=== PATIENT | female | born 1935 | race Caucasian/White ===

== ENCOUNTER 2020-08-06 07:29 | Observation (INO) ==
[2020-08-01 13:38] LABS: Alanine Aminotransferase 20 U/L (12-78); Albumin Level 3.6 gm/dl (3.4-5.0); Aspartate Aminotransferase 17 U/L (15-37); BUN Creatinine Ratio 20.4 (10-20); Bilirubin Direct < 0.1 mg/dl (0-0.2); Blood Urea Nitrogen 16 mg/dl (7-18); Calcium 9.6 mg/dl (8.5-10.1); Carbon Dioxide 29 mmol/L (21-32); Chloride 107 mmol/L (98-107); Creatinine Clr Calc Pharmacy 58.7 ml/min; Est GFR (African American) 83.3; Est GFR (Non-African American) 71.9; Glucose 87 mg/dl (70-99); Potassium 4.1 mmol/L (3.5-5.1); Sodium 142 mmol/L (136-145)
[2020-08-01 13:39] LABS: Alkaline Phosphatase 84 U/L (45-117); Bilirubin,Total 0.3 mg/dl (0.2-1); Total Protein 7.6 gm/dl (6.4-8.2)
--- NOTE | 2020-08-02 10:54 | Anesthesiology Consultation ---
Date of Service August 02, 2020 Assessment & Plan (1) Encounter for pre-operative examination: COVID Status: As of 07/25 nurse assessment, patient denies travel to endemic area, known exposure/sick contacts, or symptoms of COVID19. Preoperative COVID19 testing completed on 08/01, results pending. Pre-op CBC was not completed. Will order for AM DOS. Chart Review Chart Review: Acceptable Risk for Surgery (pending CBC AM DOS) and Patient NOT seen in Pre Admission Testing History Surgery Operation Date: 08/06/20 09:20 Proposed Procedures p Laparoscopic Cholecystectomy - Julito Luz MD, FACS Height/Weight Height: 5 ft 6 in Weight: 76.204 kg Allergies Allergy/AdvReac Type Severity Reaction Status Date / Time Penicillins Allergy Rash Verified 07/25/20 10:53 Sulfa (Sulfonamide Allergy pruritis Verified 07/25/20 10:53 Antibiotics) Medications Home Medications Medication Instructions Recorded Confirmed Last Taken acetaminophen 325 mg tablet 325 mg PO Q4H PRN 06/13/20 07/25/20 Unknown lisinopril 20 mg tablet 20 mg PO QPM 06/13/20 07/25/20 Unknown calcium carbonate 600 mg (1,500 1 cap PO QPM cap 07/09/20 07/25/20 Unknown mg)-vitamin D3 500 unit capsule omega-3 fatty acids 1,000 mg 1,000 mg PO QAM 07/10/20 07/25/20 Unknown capsule aspirin 81 mg PO Q OTHER DAY 07/25/20 07/25/20 Unknown cranberry extract-vitamin C 2 cap PO BID 07/25/20 07/25/20 Unknown bygxwlrricel-gxntcoqz-ixzdiu 1 tab PO QAM 07/25/20 07/25/20 Unknown [Multivitamin 50 Plus] solifenacin [Vesicare] 10 mg PO QAM 07/25/20 07/25/20 Unknown Past Medical History Medical History Cholelithiases Hiatal hernia History of nephrolithiasis Hypertension Osteoarthritis Overactive bladder Spinal stenosis Past Family History Family History Father Prostate cancer Other Diabetes Heart disease Hypertension Past Surgical History Surgical History H/O esophagogastroduodenoscopy 03/2020 for nausea w/u in hospital H/O: hysterectomy History of arthroscopy of left shoulder History of benign breast biopsy History of bunionectomy History of hammertoe correction History of knee replacement BL History of root canal procedure 07/23/2020 History of shoulder surgery Rt Hx of appendectomy Hx of colonoscopy 06/15/2014 Hx of tonsillectomy Social History Smoking Status: Never smoker Do You Dip or Chew Tobacco: No Hx Alcohol Use: No Hx Substance Use: No substance use type: does not use Testing Laboratory Results 08/01/20 10:48 Electrocardiogram Date: 04/08/20 SR at 99bpm with marked sinus arrhythmia. Chest X-Ray Date: 04/08/20 Findings: + NAD Echocardiogram Date: 04/09/20 EF: 60% LV Function: normal Other Findings: + diastolic dysfunction (grade I) Valvular Disease: + no significant valvular disease Stress Test Date: 04/09/20 Mild breast attenuation. Good quality study. Normal gated MPI wall motion and EF. There is a small in size, mild in intensity, fixed MPI defect isolated to the distal inferolateral myocardium. This appears to be breast attenuation artifact. A small infarct cannot be excluded. There is no myocardial ischemia. Low risk study. Similar to prior study dated 09/02/06.
[2020-08-02 19:33] LABS: SARS CoV2 RNA (COVID-19) NOT DETECTED (NOT DETECTED)
[~2020-08-06 07:29] MED LIST: CIPROFLOXACIN / D5W 400 MG/200 ML BAG IV SCH; LR 15ML/HR IV SCH
[2020-08-06] MEDS ORDERED: DEXAMETHASONE SOD INJ 4 MG/ML VIAL ONE (07:40)
[2020-08-06] MEDS ORDERED: GLYCOPYRROLATE 0.2 MG/ML VIAL ONE (07:40)
[2020-08-06] MEDS ORDERED: PROPOFOL IV EMULSION 10 MG/ML 20 ML VIAL IV ONE (07:40)
[2020-08-06] MEDS ORDERED: fentaNYL citrate 100 MCG/2 ML VIAL ONE (07:40)
[2020-08-06] MEDS ORDERED: ONDANSETRON INJ 2 MG/ML 2 ML VIAL ONE (07:40)
[2020-08-06] MEDS ORDERED: LIDOCAINE HCL 2% 2 ML VIAL/AMP(20MG/ML) INFIL ONE (07:40)
[2020-08-06] MEDS ORDERED: NEOSTIGMINE METHYLSULFATE 5 MG/5 ML SYR ONE (07:40)
[2020-08-06 08:22] LABS: Basophils # (auto) 0.02 K/uL (0-0.2); Basophils % (auto) 0.4 %; Eosinophils # (auto) 0.11 K/uL (0-0.5); Eosinophils % (auto) 2.1 %; Hematocrit (blood only) 44.2 % (37-47); Hemoglobin 14.9 g/dL (12.0-16.0); Immature Granulocytes # (auto) 0.01 K/uL (0.00-0.02); Immature Granulocytes % (auto) 0.2 %; Lymphocytes % (auto) 37.7 %; Mean Corpuscular Hemoglobin 31.6 pg (25-34); Mean Corpuscular Volume 93.6 fL (80-100); Mean Platelet Volume 9.8 fL (7.4-10.4); Monocytes # (auto) 0.46 K/uL (0.11-0.59); Monocytes % (auto) 8.7 %; Neutrophils % (auto) 50.9 %; Platelet Count 248 K/uL (130-400); RDW Coefficient of Variation 13.4 % (11.5-14.5); Red Blood Count 4.72 M/uL (4.2-5.4)
--- NOTE | 2020-08-06 08:27 | History & Physical Bridge Note ---
Date of Service August 06, 2020 History & Physical Bridge Note I have examined the patient, reviewed the History & Physical and in the interval since the performance of the History & Physical I have noted the following changes of clinical significance: no changes noted
[2020-08-06] MEDS ORDERED: ePHEDrine sulfate 50 MG/ML AMP IV PRN (08:48)
[2020-08-06] MEDS ORDERED: ONDANSETRON INJ 2 MG/ML 2 ML VIAL IV PRN ×2 (08:48→11:14)
[2020-08-06] MEDS ORDERED: ATROPINE SULFATE 0.1 MG/ML 10ML SYR IV PRN (08:48)
[2020-08-06] MEDS ORDERED: BUPIVACAINE 0.5 % 5 MG/1 ML MPF 30ML VIAL ONE (09:00)
[2020-08-06 09:03] LABS: Mean Corpuscular Hgb Conc 33.7 g/dL (32-36)
[2020-08-06] MEDS ORDERED: ePHEDrine sulfate 50 MG/ML SYR ONE (09:22)
--- NOTE | 2020-08-06 09:48 | Post Operative Brief Note ---
PG Immediate Post Op with CF Date of Surgery August 06, 2020 Pre & Post Diagnosis Operation Date: 08/06/20 09:20 Pre-Op Diagnosis: Cholelithiasis, biliary colic Post-Op Diagnosis: Cholelithiasis, biliary colic I identified the patient and participated in the time-out.: Yes Procedure Operation Date: 08/06/20 09:20 Actual Procedures p Laparoscopic Cholecystectomy(Not Applicable) - Julito Luz MD, FACS Surgeon Julito Luz MD, FACS [facility] Mony Michaels Estimated Blood Loss 20 Findings Consistent with Post-Op Diagnosis Specimens Specimen Description: Permanent specimen: A. Gallbladder and contents
[2020-08-06] MEDS ORDERED: ACETAMINOPHEN 1,000 MG/100 ML VIAL IV ONE (09:59)
[2020-08-06] MEDS: fentaNYL citrate 100 MCG/2 ML VIAL IV PRN ×2 (10:21→10:26)
--- NOTE | 2020-08-06 10:27 | Operative Report (OR) ---
DATE OF OPERATION: 08/06/2020 NAME OF OPERATION: Laparoscopic cholecystectomy. PREOPERATIVE DIAGNOSES: Biliary colic and cholelithiasis. POSTOPERATIVE DIAGNOSES: Biliary colic and cholelithiasis. STAFF SURGEON: Julito Luz MD. OPERATIONS REPRESENTATIVE: Zhang Michaels PA-C. ANESTHESIA: General. DESCRIPTION OF PROCEDURE: The patient was brought in the Operating Room and placed on the operating table in supine position. Pneumatic stockings, orogastric tube were placed. My assistant corporate controller helped with prepping, draping, removal of the gallbladder, closure of the wounds. Incision was made above the umbilicus, anesthetizing all incisions using 0.5% plain Marcaine, carrying dissection down to the fascia, placing a Veress needle, producing pneumoperitoneum, placing an 11 mm port. Under visualization, three 5 mm ports were placed, 1 cephalad, 2 laterally, all under visualization. The patient's gallbladder was very distended. It was aspirated of bile. Dissection was carried out the alice hepatis identifying the cystic duct and cystic artery as well as common hepatic artery. Cystic duct and cystic artery were clipped and transected. Gallbladder was then dissected away from the liver bed in the usual fashion. It was placed in an Endobag. After appropriate hemostasis and irrigation, the Endobag was removed from the umbilical site. All ports were then removed. Fascia at the umbilicus closed using interrupted 0 Vicryl suture. Skin reapproximated using subcuticular 4-0 Monocryl with Steri-Strips. The patient was transferred to Recovery Room in stable condition. I attest to the content of the Intraoperative Record and any orders documented therein. Any exception s are noted below.
--- NOTE | 2020-08-06 10:38 | Anesthesiology Progress Note ---
Date of Service August 06, 2020 Anesthesia Post Procedure Vital Signs Vital Signs: Temp Pulse Pulse Resp BP BP Pulse Ox 08/06/20 10:30 62 16 123/58 L 97 08/06/20 10:20 62 16 142/61 H 100 08/06/20 10:10 66 16 138/61 99 08/06/20 10:03 36.4 C L 16 134/61 98 08/06/20 08:20 37.5 C 90 18 170/86 H 98 Transfer of Care Handoff Completed per policy Notes Mental Status: alert / awake / arousable Patient Amnestic to Procedure: Yes Nausea / Vomiting: adequately controlled Pain: adequately controlled Airway Patency, RR, SpO2: stable & adequate BP & HR: stable & adequate Hydration State: stable & adequate Anesthetic Complications: no major complications apparent
[2020-08-06] MEDS ORDERED: MoRPHine SULFATE 2 MG/ML CARP IV PRN ×2 (11:14)
[2020-08-06] MEDS ORDERED: HYDROCODONE/ACETAMOPHEN 5/325MG TAB PO PRN ×2 (11:14)
[2020-08-06] MEDS ORDERED: PROMETHAZINE HCL 12.5 MG in SODIUM CHLORIDE 0.9% 50 ML IV PRN (11:14)
[2020-08-06] MEDS ORDERED: LACTATED RINGER'S 1,000 ML IV SCH (11:14)
[2020-08-06] MEDS ORDERED: ACETAMINOPHEN 325 MG TAB PO PRN (11:14)
--- NOTE | 2020-08-06 11:53 | Consultation ---
Date of Consultation August 06, 2020 Assessment & Plan (1) Cholelithiasis: POD #[address] Luz secondary to cholelithiasis and biliary colic EBL 20 mL Tolerated procedure well Pain/wound management per general surgery Encourage incentive spirometry Diet and activity per surgery Follow H&H Pt with complaints of nausea - instructed nurse to administer Promethazine 12.5mg x 1 now (2) Hypertension: Blood pressure controlled, 137/64 Continue lisinopril with hold parameters (3) Urge and stress incontinence: Continue Vesicare (4) GERD (gastroesophageal reflux disease): Continue PPI (5) DVT prophylaxis: SCD/TEDS, per primary Follow up: PCP Dr. Jeong upon discharge Pt was seen and examined in collaboration with Dr. Pelayo, please see addendum Starting 08/07/20 pt will be under the care of Dr. Hickman Thank you for this consultation. We will follow the patient with you during their hospital stay. You can reach a member of the [facility] Hospitalist Team 15/06 via pager @ [phone]. Supervising Physician Co-Signing Physician Notes Pt was seen and examined. Agreed with Tatiana CULVER exam, assessment and plan. 84-year-old female who has significant past medical history of HTN, GERD, over active bladder, spinal stenosis, osteoarthritis s/p elective laparoscopic cholecystectomy today performed by Dr. Luz. Pt said that pain is mild around the incision area. She said that she doesn't have anymore nausea. Denies any chest pain, palpitation, dizziness and SOB. No post op complication. Continue incentive spirometry. Continue pain control as per surgery. Diet started as per ortho. Will monitor H/H and electrolytes. Will continue monitor her during the hospital course. MD Pierce History of Present Illness Requesting Physician: Dr. Luz Reason for Consultation: Postop medical management Attending Physician: Julito Luz MD, FACS History of Present Illness This is an 84-year-old female who has significant past medical history of HTN, GERD, overactive bladder, spinal stenosis, osteoarthritis who presents for elective laparoscopic cholecystectomy by Dr. Luz. She tolerated procedure well. We have been consulted for medical management. Patient elicits for several weeks she has been experiencing nausea and bloating. She underwent ultrasound of abdomen as outpatient which revealed gallbladder stones. She was referred to Dr. Luz who felt symptoms were likely secondary to biliary colic and possible chronic cholecystitis. Therefore today she underwent elective laparoscopic cholecystectomy. She tolerated procedure well. Postoperatively she is complaining of right upper quadrant abdominal discomfort, described as a dull ache, 3/10, nonradiating. She also complains of nausea but no vomiting. She denies any fever, chills, sweats, lightheadedness, dizziness, chest pain, shortness breath, cough, diarrhea, change in bowel or urinary habits. Her is at bedside. She is requesting antiemetic. She does have history of hypertension which is well-controlled on oral lisinopril. She did undergo echocardiogram and nuclear stress testing which was negative for inducible ischemia. Echo revealed EF 60% with grade 1 diastolic dysfunction. She does have significant osteoarthritis in which she states she is going to require a right shoulder procedure in the future. She does have history of GERD which is treated with Prilosec. Outpt records reviewed. Allergies Allergy/AdvReac Type Severity Reaction Status Date / Time Penicillins Allergy Rash Verified 07/25/20 10:53 Sulfa (Sulfonamide Allergy pruritis Verified 07/25/20 10:53 Antibiotics) NSAIDS (Non-Steroidal AdvReac Intermediate Gastrointestinal Verified 08/06/20 08:07 Anti-Inflamma Upset Home Medications Home Medications Medication Instructions Recorded Confirmed Type acetaminophen 325 mg tablet 325 mg PO Q4H PRN 06/13/20 08/06/20 History lisinopril 20 mg tablet 20 mg PO QPM 06/13/20 08/06/20 History calcium carbonate 600 mg (1,500 1 cap PO QPM cap 07/09/20 08/06/20 History mg)-vitamin D3 500 unit capsule omega-3 fatty acids 1,000 mg 1,000 mg PO QAM 07/10/20 08/06/20 History capsule aspirin 81 mg PO Q OTHER DAY 07/25/20 08/06/20 History cranberry extract-vitamin C 2 cap PO BID 07/25/20 08/06/20 History zuzezlnzkrnz-hxmwzefa-kljtva 1 tab PO QAM 07/25/20 08/06/20 History [Multivitamin 50 Plus] solifenacin [Vesicare] 10 mg PO QAM 07/25/20 08/06/20 History estradiol [Estrace] 1 applic VAGINAL 2XWK PRN 08/06/20 08/06/20 History omeprazole [Prilosec] 20 mg PO DAILY 08/06/20 08/06/20 History polyethylene glycol 3350 [Miralax] 17 g PO DAILY 08/06/20 08/06/20 History Patient History Medical History Cholelithiases Hiatal hernia History of nephrolithiasis Hypertension Osteoarthritis Overactive bladder Spinal stenosis Surgical History H/O esophagogastroduodenoscopy 03/2020 for nausea w/u in hospital H/O: hysterectomy History of arthroscopy of left shoulder History of benign breast biopsy History of bunionectomy History of hammertoe correction History of knee replacement BL History of root canal procedure 07/23/2020 History of shoulder surgery Rt Hx of appendectomy Hx of colonoscopy 06/15/2014 Hx of tonsillectomy Family History Father Prostate cancer Other Diabetes Heart disease Hypertension Social History Smoking Status: Never smoker Second Hand Exposure: No; Do You Dip or Chew Tobacco: No; Hx Alcohol Use: No Hx Substance Use: No Preferred Language: Yi Communication Ability: Effective Environmental Projects Advisor Required: No Beliefs That Will Affect Care: None marital status: Current Living Situation: Spouse current occupational status: retired Feels Safe at Home: Yes Safety Concerns: Feels Safe At This Time Review of Systems Review of Systems: All systems reviewed & are unremarkable except as noted in HPI & below Physical Exam Physical Exam: Constitutional: WD/WN, elderly, female, vitals as above, NAD, sitting up in bed, pleasant, conversing easily Head: Normocephalic, Atraumatic Eyes: PERRL, conjunctivae normal, anicteric sclerae ENMT: external ear and nose normal, oropharynx normal Neck: trachea midline, no thyromegaly normal visual inspection Respiratory: normal respiratory effort, lungs clear to auscultation, no wheeze, rales, rhonchi. Normal insp/exp effort, no accessory muscle use Cardiovascular: RRR, no murmur, no edema Vessels: no JVD or carotid bruit Chest: normal inspection of chest Abdomen: Diminished bowel sounds, laparoscopic incision dressings mild serosanguineous drainage, soft no hepatosplenomegaly Musculoskeletal: no cyanosis or clubbing, extremities motor strength 5/5 Skin: no rashes, warm and dry normal turgor Neurologic: PERRL, EOMI, accommodation nl, no face palsy, no dysarthria CN's II-XI intact bilaterally and moves all extremities Psychiatric: A+Ox3, euthymic affect Lymphatic: no cervical or axillary lymphadenopathy : deferred Results & Data ([place]) Vital Signs (Past 12 Hours) Vital Signs Temp Pulse Pulse Resp BP BP Pulse Ox 08/06/20 11:30 36.3 C L 59 L 16 137/64 92 08/06/20 11:00 36.3 C L 61 16 134/74 134/74 97 08/06/20 10:40 36.5 C 69 16 132/59 L 97 08/06/20 10:30 62 16 123/58 L 97 08/06/20 10:20 62 16 142/61 H 100 08/06/20 10:10 66 16 138/61 99 08/06/20 10:03 36.4 C L 16 134/61 98 08/06/20 08:20 37.5 C 90 18 170/86 H 98 Laboratory Results Short CBC 08/06/20 Range/Units 08:05 WBC 5.30 (4.8-10.8) K/uL Hgb 14.9 (12.0-16.0) g/dL Hct 44.2 (37-47) % Plt Count 248 (130-400) K/uL Preoperative, testing on 08/06 was negative Diagnostic Findings Preoperative chest x-ray 04/08/2020 no acute cardiopulmonary normality Nuclear stress test 08/10/2020- for inducible ischemia Echocardiogram 04/09/2020 revealed EF 60% with grade 1 diastolic dysfunction, mild aortic valve thickening, no sclerosis Medications Administered Discontinued Medications Bupivacaine HCl (Bupivacaine 0.5 % 5 Mg/1 Ml Mpf 30ml Vial) Confirm Administered Dose 30 ml .ROUTE .STZentric-MED ONE Stop: 08/06/20 09:01 Last Admin: 08/06/20 09:48 Dose: 10 ml Documented by: [id number] Fentanyl Citrate (Fentanyl Citrate 100 Mcg/2 Ml Vial) 50 mcg IV Q5M PRN PRN Reason: PACU Use Only-Pain Stop: 08/06/20 16:48 Last Admin: 08/06/20 10:26 Dose: 50 mcg Documented by: [id number] Admin: 08/06/20 10:21 Dose: 50 mcg Documented by: [id number] Lactated Ringer's (Lr) 1,000 mls @ 15 mls/hr IV .Q24H FRANKO Stop: 08/07/20 05:59 Last Infusion: 08/06/20 08:51 Dose: 0 mls/hr Documented by: [id number] Admin: 08/06/20 08:46 Dose: 15 mls/hr Documented by: [id number] Ciprofloxacin (Cipro / D5w) 400 mg in 200 mls @ 100 mls/hr IV PREOP FRANKO Stop: 08/06/20 16:00 Last Infusion: 08/06/20 11:29 Dose: 0 mls/hr Documented by: [id number] Admin: 08/06/20 08:51 Dose: 100 mls/hr Documented by: [id number] Acetaminophen (Ofirmev) 1,000 mg in 100 mls @ 400 mls/hr IV NOW ONE; Protocol Stop: 08/06/20 10:13 Last Infusion: 08/06/20 11:29 Dose: 0 mls/hr Documented by: [id number] Admin: 08/06/20 10:15 Dose: 400 mls/hr Documented by: [id number] Ondansetron HCl (Ondansetron Inj 2 Mg/Ml 2 Ml Vial) 4 mg IV ONCE PRN PRN Reason: PACU Use Only-Nausea/Vomiting Stop: 08/06/20 16:49 Last Admin: 08/06/20 10:20 Dose: 4 mg Documented by: [id number] ECG Rate (beats per minute): 99 Rhythm: normal sinus
[2020-08-06] MEDS ORDERED: lisinopriL 20 MG TAB PO SCH (21:00)
[2020-08-07 06:15] LABS: Basophils # (auto) 0.02 K/uL (0-0.2); Basophils % (auto) 0.2 %; Eosinophils # (auto) 0.02 K/uL (0-0.5); Eosinophils % (auto) 0.2 %; Hematocrit (blood only) 42.7 % (37-47); Hemoglobin 13.8 g/dL (12.0-16.0); Immature Granulocytes # (auto) 0.02 K/uL (0.00-0.02); Immature Granulocytes % (auto) 0.2 %; Lymphocytes # (auto) 1.22 K/uL (1.2-3.4); Lymphocytes % (auto) 13.5 %; Mean Corpuscular Hemoglobin 30.6 pg (25-34); Mean Corpuscular Hgb Conc 32.3 g/dL (32-36); Mean Corpuscular Volume 94.7 fL (80-100); Mean Platelet Volume 9.8 fL (7.4-10.4); Monocytes # (auto) 0.65 K/uL (0.11-0.59); Monocytes % (auto) 7.2 %; Neutrophils # (auto) 7.14 K/uL (1.4-6.5); Neutrophils % (auto) 78.7 %; Platelet Count 270 K/uL (130-400); RDW Coefficient of Variation 13.6 % (11.5-14.5); RDW Standard Deviation 47.1 fL (36.4-46.3); Red Blood Count 4.51 M/uL (4.2-5.4); White Blood Count 9.07 K/uL (4.8-10.8)
[2020-08-07 06:51] LABS: Albumin Level 3.6 gm/dl (3.4-5.0); BUN Creatinine Ratio 18.6 (10-20); Bilirubin Direct 0.1 mg/dl (0-0.2); Calcium 9.5 mg/dl (8.5-10.1); Creatinine Clr Calc Pharmacy 57.3 ml/min; Est GFR (African American) 80.8; Est GFR (Non-African American) 69.7
[2020-08-07 06:54] LABS: Bilirubin,Total 0.5 mg/dl (0.2-1); Globulin 3.5 gm/dl (2.5-4.0); Phosphorus 3.7 mg/dl (2.5-4.9); Total Protein 7.1 gm/dl (6.4-8.2)
--- NOTE | 2020-08-07 08:34 | Hospitalist Progress Note ---
Date of Service August 07, 2020 Assessment & Plan (1) Cholelithiasis: POD #[address] Dr[address] Luz secondary to cholelithiasis and biliary colic EBL 20 mL Tolerated procedure well Pain/wound management per general surgery Encourage incentive spirometry Tolerating diet H&H stable 13.8 and 42.7 (2) Hypertension: Blood pressure controlled, 135/68 Continue lisinopril with hold parameters (3) Urge and stress incontinence: Continue Vesicare (4) GERD (gastroesophageal reflux disease): Continue PPI (5) DVT prophylaxis: SCD/TEDS, per primary Follow up: PCP Dr. Jeong upon discharge Pt was seen and examined in collaboration with Dr. Hickman, please see addendum Thank you for this consultation. We will follow the patient with you during their hospital stay. [facility] via pager @ [phone]. Admission and Anticipated Discharge Date Admission Date: August 06, 2020 Supervising Physician Co-Signing Physician Notes I have seen and examined the patient and have discussed the case with the provider above. I agree with the assessment and plan as stated. 84 yo F POD 1 s/p laparoscopic cholecystectomy, feels well, denies pain that is not well controlled with oral medications. She is ambulatory, tolerating PO, mentating clearly. Wounds are covered with steri strips and are dry and intact without drainage or surrounding erythema. Overall she feels well and is being sent home in stable condition. DO Amrit Hickman Patient was seen and examined in room 353. She is postop day #1 status post laparoscopic cholecystectomy. She feels well this morning. She slept well last evening. She continues to have mild incisional discomfort as well as tightness to the upper abdomen that is worse with taking deep breath. She has been doing incentive spirometry every hour. She is passing gas. She denies any fever, chills, sweats, lightheadedness, dizziness, chest pain, short breath, cough, nausea, vomiting. She is urinating without difficulty. Per patient she is going to be discharged later this morning with close outpatient follow-up with surgeon. Review of Systems Review of Systems: All systems reviewed & are unremarkable except as noted in HPI & below Physical Exam Physical Exam: Gen: WD/WN, NAD, F A&O x3 HEENT: Normocephalic, atraumatic, conjunctivae moist, sclerae anicteric, mucous membranes moist. Lung: Clear to Auscultation bilaterally, no wheezes/rales/rhonchi Heart: Regular rate, regular rhythm, no murmurs, rubs, or gallops Abdomen: Incision CDI with steri in place, Soft, mild tenderness to palpation, no rebound, ND +BS x 4 Extremities: No edema Skin: Warm, no rash, negative turgor. Results & Data Results & Data ([facility]) Vital Signs (Past 12 Hours) Vital Signs Temp Pulse Pulse Resp BP BP Pulse Ox 08/07/20 07:03 36.9 C 67 14 135/68 96 08/07/20 02:51 36.4 C L 77 16 144/71 H 95 08/06/20 23:05 36.8 C 70 18 131/69 95 08/06/20 20:39 79 137/71 Laboratory Results Short CBC 08/07/20 Range/Units 05:55 WBC 9.07 (4.8-10.8) K/uL Hgb 13.8 (12.0-16.0) g/dL Hct 42.7 (37-47) % Plt Count 270 (130-400) K/uL BMP 08/07/20 05:55 Sodium 139 Potassium 4.0 Chloride 106 Carbon Dioxide 29 BUN 15 Creatinine 0.79 Glucose 101 H Calcium 9.5 Liver Function 08/07/20 Range/Units 05:55 Total Bilirubin 0.5 (0.2-1) mg/dl Direct Bilirubin 0.1 (0-0.2) mg/dl AST 43 H (15-37) U/L ALT 51 (12-78) U/L Alkaline Phosphatase 63 (45-117) U/L Albumin 3.6 (3.4-5.0) gm/dl Medications Administered Hydrocodone Bitart/Acetaminophen (Hydrocodone/Acetamophen 5/325mg Tab) 2 tab PO Q4HWA PRN PRN Reason: Pain Stop: 08/20/20 11:13 Last Admin: 08/06/20 13:07 Dose: 2 tab Documented by: [id number] Promethazine HCl 12.5 mg/ (Sodium Chloride) 50.5 mls @ 204 mls/hr IV Q6H PRN PRN Reason: Nausea And Vomiting Stop: 09/05/20 11:13 Last Infusion: 08/06/20 13:03 Dose: 0 mls/hr Documented by: [id number] Admin: 08/06/20 12:03 Dose: 204 mls/hr Documented by: [id number] Lisinopril (Lisinopril 20 Mg Tab) 20 mg PO QPM FRANKO Stop: 09/05/20 20:59 Last Admin: 08/06/20 20:42 Dose: 20 mg Documented by: [id number] Miscellaneous (*Vesicare*Order Awaiting Action) 1 ea N/A QS FRANKO Stop: 09/05/20 15:59 Last Admin: 08/07/20 07:17 Dose: Not Given Documented by: [id number] Admin: 08/06/20 23:30 Dose: Not Given Documented by: [id number] Admin: 08/06/20 15:25 Dose: Not Given Documented by: [id number] Discontinued Medications Bupivacaine HCl (Bupivacaine 0.5 % 5 Mg/1 Ml Mpf 30ml Vial) Confirm Administered Dose 30 ml .ROUTE .STK-MED ONE Stop: 08/06/20 09:01 Last Admin: 08/06/20 09:48 Dose: 10 ml Documented by: [id number] Fentanyl Citrate (Fentanyl Citrate 100 Mcg/2 Ml Vial) 50 mcg IV Q5M PRN PRN Reason: PACU Use Only-Pain Stop: 08/06/20 16:48 Last Admin: 08/06/20 10:26 Dose: 50 mcg Documented by: [id number] Admin: 08/06/20 10:21 Dose: 50 mcg Documented by: [id number] Lactated Ringer's (Lr) 1,000 mls @ 15 mls/hr IV .Q24H FRANKO Stop: 08/07/20 05:59 Last Infusion: 08/06/20 08:51 Dose: 0 mls/hr Documented by: [id number] Admin: 08/06/20 08:46 Dose: 15 mls/hr Documented by: [id number] Ciprofloxacin (Cipro / D5w) 400 mg in 200 mls @ 100 mls/hr IV PREOP FRANKO Stop: 08/06/20 16:00 Last Infusion: 08/06/20 11:29 Dose: 0 mls/hr Documented by: [id number] Admin: 08/06/20 08:51 Dose: 100 mls/hr Documented by: [id number] Acetaminophen (Ofirmev) 1,000 mg in 100 mls @ 400 mls/hr IV NOW ONE; Protocol Stop: 08/06/20 10:13 Last Infusion: 08/06/20 11:29 Dose: 0 mls/hr Documented by: [id number] Admin: 08/06/20 10:15 Dose: 400 mls/hr Documented by: [id number] Lactated Ringer's (Lr) 1,000 mls @ 50 mls/hr IV .Q20H FRANKO Stop: 08/06/20 15:59 Last Infusion: 08/06/20 20:13 Dose: 0 mls/hr Documented by: [id number] Admin: 08/06/20 12:04 Dose: 50 mls/hr Documented by: [id number] Ondansetron HCl (Ondansetron Inj 2 Mg/Ml 2 Ml Vial) 4 mg IV ONCE PRN PRN Reason: PACU Use Only-Nausea/Vomiting Stop: 08/06/20 16:49 Last Admin: 08/06/20 10:20 Dose: 4 mg Documented by: [id number]
[2020-08-07] MEDS ORDERED: PANTOprazole 40 MG TAB PO SCH (09:00)
[2020-08-07] MEDS ORDERED: POLYETHYLENE (MIRALAX) 17 GM PACK PO SCH (09:00)
--- NOTE | 2020-08-08 11:27 | Discharge Summary (DS) ---
PRINCIPAL DIAGNOSES: Chronic cholecystitis and biliary colic. HISTORY OF PRESENT ILLNESS: The patient is an 84-year-old female who has been having abdominal pain, felt to be related to her gallbladder with severe distention and stones with biliary colic. HOSPITAL COURSE: The patient was brought into the hospital on 08/06/2020. She underwent elective laparoscopic cholecystectomy showing a distended gallbladder with stones. She did quite well overnight, felt stable for discharge on 08/07/2020, to be followed in the surgical clinic within 1-2 weeks.
== END 2020-08-07 11:04 | disposition home or self-care (01) ==
LOC: 3W 07:29 → ASU 07:29 → 3W 21:15